=== PATIENT | male | born 1995 | race Caucasian/White ===

== ENCOUNTER 2024-04-23 05:43 | Emergency (ER) | payer BC, SELFPAY ==
--- NOTE | ~2024-04-23 | CT_ITS ---
CT FACIAL BONES WITH CONTRAST CLINICAL INFORMATION: Swelling and pain. COMPARISON: None available. TECHNIQUE: Multidetector CT acquisition of the maxillofacial region was obtained following the administration of 85 mL of Omnipaque 350 intravenous contrast without complication. This CT examination was performed using dose optimization techniques as appropriate, variously including the following: *Automated exposure control *Adjustment of mA and/or kV according to patient size (this includes techniques or standardized protocols for targeted exams where dose is matched to indication/reason for exam; i.e. extremities or head) *Use of iterative reconstruction technique FINDINGS: There is an odontogenic periapical abscess associated with the roots of the right second maxillary molar with adjacent maxillary alveolar process buccal cortical erosion and an overlying 1 cm x 0.5 cm right devyn-maxillary abscess surrounded by phlegmon and cellulitis extending into the right buccal and devyn-maxillary soft tissues. No additional significant soft tissue findings. There is moderate mucosal thickening within the right maxillary sinus and there is mild mucosal thickening within the left maxillary sinus. Mild mucosal thickening within the ethmoid air cells bilaterally. The remaining paranasal sinuses and the mastoid air cells are clear. The TMJs are unremarkable. There is leftward deviation of the nasal septum with a leftward directed septal spur and there are kasey bullosa within the right greater than left middle turbinates. CT/CT facial bones w IV con IMPRESSION: There is an odontogenic periapical abscess associated with the roots of the right second maxillary molar with adjacent maxillary alveolar process buccal cortical erosion, an overlying 1 cm right devyn-maxillary abscess, as well as phlegmon and cellulitis extending into the right buccal and right devyn-maxillary soft tissues. Electronically signed by: Roc Roberts MD 04/23/2024 01:37 PM EDT
[2024-04-23 05:48] VITALS: BP 170/109; PULSE 128; RESP 17; TEMP 36.8; O2SAT 98; BMI 35.4
[2024-04-23 07:36] VITALS: BP 171/103; PULSE 102; RESP 20; TEMP 36.8; O2SAT 98
--- NOTE | 2024-04-23 09:05 | ED_ITS ---
HPI - General Adult General Chief complaint: Dental/Oral Stated complaint: mouth infection Time Seen by Provider: 04/23/24 09:04 Source: patient and other (patient's partner) Mode of arrival: ambulatory Limitations: no limitations History of Present Illness ED Provider: Sue Boo PA-C HPI narrative: Patient is a 28 year old assigned male at with no reported medical history presenting to the emergency department today with right sided dental pain and facial swelling. Patient states that 3 days ago he was seen at his dentist and told his right upper tooth has an infection in it. Patient states that he was prescribed Amoxcillin, has been taking it as prescribed, however it continues to swell and now he has right sided facial swelling. Patient denies any dizziness, lightheadedness, abdominal pain, nausea, vomiting, fever, chills, blurry vision, double vision, loss of vision, chest pain, difficulty breathing, shortness of breath, back pain, night sweats, pain with urination, increased urinary frequency, increased urinary urgency, blood in his urine or stool, syncope or a near syncopal episode, recent trauma or falls, bowel incontinence, bladder incontinence, or any other complaints at this time. Onset (ago): day(s) (3) Location: mouth and right Relieving factors: none Exacerbating factors: none Associated symptoms: denies other symptoms Treatments prior to arrival: other (Amoxicillin) Related Data Previous Rx's ?Medication ?Instructions ?Recorded amoxicillin 875 mg-potassium 1 tab PO BID 10 days #20 tabs 04/23/24 clavulanate 125 mg tablet Allergies Allergy/AdvReac Type Severity Reaction Status Date / Time No Known Allergies Allergy Verified 04/23/24 05:52 Review of Systems 2 Constitutional: Constitutional: Reports no additional constitutional complaints, Denies chills, Denies fever(s) and Denies night sweats Eyes: Eyes: Reports no additional eye complaints, Denies blurry vision, Denies change in vision, Denies diplopia, Denies eye discharge, Denies loss of vision and Denies eye pain ENT: Denies dizziness Comments: right sided facial swelling and right sided mouth pain Cardiovascular: Cardiovascular: Reports no additional cardiovascular complaints, Denies chest pain, Denies lightheadedness, Denies Loss of Consciousness and Denies dyspnea Respiratory: Respiratory: Reports no additional respiratory complaints and Denies dyspnea Gastrointestinal: Gastrointestinal: Reports no additional gastrointestinal complaints, Denies abdominal pain, Denies melena, Denies hematochezia, Denies change in bowel habits and Denies change in stool character Genitourinary: Genitourinary: Reports no additional male genitourinary complaints, Denies hematuria, Denies oliguria, Denies difficulty urinating, Denies dysuria, Denies urinary frequency, Denies urinary hesitancy, Denies urinary incontinence and Denies urinary urgency Musculoskeletal: Musculoskeletal: Reports no additional musculoskeletal complaints, Denies numbness and Denies tingling Neurologic: Denies dizziness, Denies loss of vision, Denies numbness and Denies tingling Psychiatric: Psychiatric: Reports no additional psychiatric complaints Endocrine: Endocrine: Reports no additional endocrine complaints Hematologic/Lymphatic: Hematologic/Lymphatic: Reports no additional hematologic/lymphatic complaints Allergic/Immunologic: Allergic/Immunologic: Reports no additional allergic/immunologic complaints PMFSH Past Medical History Attestation statement: The following information was validated with the patient. (all information validated with the patient's partner) Source: old records reviewed, nursing notes reviewed and other (patient's partner provided additional history and confirmed the history provided by the patient) Social History Social History Alcohol intake: current Alcohol intake frequency: a few times a week Smoked in Last 30 Days: Yes Use of substances other than those prescribed or required for medical reasons: No Advance Directives: No Advance Directives Information Provided: No Do you have a plan to hurt others: No Plan Physical Exam ED Vital Signs: Vital Signs - 24 hr 04/23/24 05:48 04/23/24 07:36 04/23/24 11:58 Temperature 98.2 F 98.3 F 98.7 F Pulse Rate 128 H 102 H 112 H Respiratory Rate 17 20 16 Blood Pressure 170/109 H 171/103 H 157/94 H Pulse Oximetry 98 98 Oxygen Delivery Method Room Air Room Air Room Air 04/23/24 14:06 Temperature 98.7 F Pulse Rate 99 Respiratory Rate 16 Blood Pressure 164/97 H Pulse Oximetry 96 Oxygen Delivery Method Room Air BMI result Body Mass Index 35.4 Const General: cooperative, no acute distress, alert and awake Nutritional Appearance: well nourished Orientation/consciousness: patient oriented x3 Limitations: no limitations HENMT Head: Yes normal to inspection and Yes atraumatic Ears: hearing grossly normal bilaterally and external ears normal General nose exam: Normal external nose present, no nasal discharge noted and no epistaxis Face and sinus: No abrasion and No laceration Mouth: Normal oral and palatal mucosa present, no drooling and no muffled voice Teeth image: 2 1. swelling and erythema present - no fluctuance or active draining Eyes Other: minimal swelling just inferior of the right lower eye lid Eyelids: Yes eyelids normal Conjunctivae: conjunctivae normal Pupils: Equal, round and reactive pupils present EOM: EOMs intact bilaterally Neck Neck: Yes normal visual inspection, Yes full ROM and Yes no lymphadenopathy Chest Chest palpation & inspection: normal inspection of the chest Resp Effort & Inspection: normal respiratory effort and able to speak in complete sentences GI Inspection: Yes normal to inspection Neuro General: patient oriented x3 and moves all extremities Cranial nerves: Yes Equal, round and reactive pupils present Cognition (Neuro): normal cognition Extrem General: Yes normal to inspection, Yes full ROM and Yes capillary refill normal Psych Appearance: grossly normal Mental Status: mental status grossly normal Affect: normal affect Attitude: cooperative Thought process: Normal thought process present Thought content: Normal thought content present Insight: Good insight present (Psych) Medications Administered Discontinued Medications Generic Name Dose Route Start Last Admin Trade Name Mananq PRN Reason Stop Dose Admin Iohexol 85 ml 04/23/24 11:26 04/23/24 11:28 Iohexol 350 Mg/Ml 100 Ml Infus..Btl IV 04/23/24 11:27 85 ml ONCE ONE Administration Lorazepam 0.5 mg 04/23/24 09:30 04/23/24 09:35 Lorazepam 0.5 Mg Tablet PO 04/23/24 09:31 0.5 mg ONCE ONE Administration Ondansetron HCl 4 mg 04/23/24 09:30 04/23/24 09:35 Ondansetron Odt 4 Mg Tab.Rapdis TRANSLINGU 04/23/24 09:31 4 mg ONCE ONE Administration Procedures Abscess I/D Site: oral Side (if applicable): right Local Anesthetic: other anesthetic (2% Benzocaine (LolliCaine)) Technique: needle aspiration Amount of fluid expressed (mL): 1 Sent for culture/gram staining?: No Irrigation: No Packing used?: none Medical Decision Making Medical Decision Making MDM Narrative: Patient is a 28 year old assigned male at with no reported medical history presenting to the emergency department today with right sided facial swelling and pain. Patient's physical exam was as noted in the physical exam portion of this note. Patient's blood work showed an elevated ESR of 18 and CRP of 8.68 but were otherwise unremarkable. Patient's facial CT showed a periapical abscess associated with the roots of the right second maxillary molar with adjacent maxillary alveolar process buccal cortical erosion and an overlying 1cm right devyn-maxillary abscess with phlegmon and cellulitis extending into the right buccal and right maxillary soft tissues. I staffed this case with my attending physician, Dr. Gomez. He incised and drained part of the periapical abscess as noted in the procedure note, without incident. He recommended giving 3 grams of Unasyn, switching the patient from Amoxicillin to PO Augmentin, and discharging with strict return precautions and recommendation to follow up with his dentist. I explained my physical exam findings as well as all test results to the patient. I answered all questions asked by the patient. I stressed the importance of the patient taking his medication as directed (either prescribed or as the over the counter packaging recommends). I stressed the importance of the patient following up with his primary care provider and his dentist. I stressed the importance of the patient returning to the emergency department immediately if his symptoms were to worsen or if he were to develop any dizziness, shortness of breath, difficulty breathing, chest pain, blurry vision, loss of vision, nausea, vomiting, abdominal pain, fever, chills, back pain, or any other complaints. Patient verbalized agreement and understanding with this treatment plan and discharge. Differential Diagnosis Differential Diagnoses: The differential diagnosis associated with the presentation includes Dental abscess Facial cellulitis Admission/Observation Consideration of admission/observation: Escalation of care including admission/observation considered Patient would have been admitted to the hospital had his work up had any findings where hospital admission was appropriate and his clinical presentation warranted hospital admission. Lab Data [facility] Lab Attestation statement: I reviewed the patient's lab results. My interpretation of these results are in the [facility] Rationale portion of this note. 04/23/24 10:37 04/23/24 10:37 Labs: Lab Results 04/23/24 Range/Units 10:37 WBC 8.3 (4.8-10.8) X10*3/uL RBC 5.63 (4.60-5.80) X10*6/uL Hgb 16.8 (14.0-18.0) g/dl Hct 46.5 (42.0-52.0) % MCV 82.6 (80.0-98.0) fL MCH 29.8 (27.0-33.0) pg MCHC 36.1 H (31.0-36.0) g/dl RDW 12.4 (11.0-16.0) % Plt Count 167 (160-400) X10*3/uL MPV 9.2 L (9.4-12.4) fL Immature Gran % (Auto) 0.4 (0.0-0.4) % Neut % (Auto) 75.3 H (45-73) % Lymph % (Auto) 11.2 L (20-40) % [place] % (Auto) 11.8 H (2-11) % Eos % (Auto) 0.8 (0-4) % Baso % (Auto) 0.5 (0-2) % Lymph # (Auto) 0.9 L (1.2-4.9) X10*3/uL [place] # (Auto) 1.0 (0.1-1.2) X10*3/uL Eos # (Auto) 0.1 (0.0-0.4) X10*3/uL Baso # (Auto) 0.0 (0.0-0.2) X10*3/uL Abs Immat Gran (auto) 0.03 (0.00-0.03) X10*3/uL Absolute Neuts (auto) 6.3 (2.0-8.3) x10*3/uL Absolute Nucleated RBC 0.000 (0.0-0.012) X10*3/uL Nucleated RBC % (auto) 0.0 (0.0-0.2) /100WBC ESR 18 H (0-15) MM/HR Sodium 139 (135-145) mmol/L Potassium 4.1 (3.3-5.1) mmol/L Chloride 103 (96-108) mmol/L Carbon Dioxide 26 (22-29) mmol/L Anion Gap 14 (12-20) BUN 13 (9-16) mg/dL Creatinine 0.92 (0.5-1.4) mg/dL Estim Creat Clear Calc 154.1 Estimated GFR > 60 Random Glucose 109 (60-115) mg/dL Calcium 9.9 (8.4-10.2) mg/dL Total Bilirubin 0.7 (0.0-1.0) mg/dL AST 38 H (5-37) U/L ALT 56 H (0-40) U/L Alkaline Phosphatase 53 (39-117) U/L C-Reactive Protein 8.68 H (< or = 0.50) mg/dL Total Protein 8.3 H (6.5-8.0) g/dL Albumin 4.7 (3.5-5.0) g/dL Independent Interpretation I performed an independent interpretation of an: CT Scan Interpretation: My interpretation is in agreement with the radiologist's impression of this imaging study. - CT FACIAL BONES WITH CONTRAST CLINICAL INFORMATION: Swelling and pain. COMPARISON: None available. TECHNIQUE: Multidetector CT acquisition of the maxillofacial region was obtained following the administration of 85 mL of Omnipaque 350 intravenous contrast without complication. This CT examination was performed using dose optimization techniques as appropriate, variously including the following: *Automated exposure control *Adjustment of mA and/or kV according to patient size (this includes techniques or standardized protocols for targeted exams where dose is matched to indication/reason for exam; i.e. extremities or head) *Use of iterative reconstruction technique FINDINGS: There is an odontogenic periapical abscess associated with the roots of the right second maxillary molar with adjacent maxillary alveolar process buccal cortical erosion and an overlying 1 cm x 0.5 cm right devyn-maxillary abscess surrounded by phlegmon and cellulitis extending into the right buccal and devyn-maxillary soft tissues. No additional significant soft tissue findings. There is moderate mucosal thickening within the right maxillary sinus and there is mild mucosal thickening within the left maxillary sinus. Mild mucosal thickening within the ethmoid air cells bilaterally. The remaining paranasal sinuses and the mastoid air cells are clear. The TMJs are unremarkable. There is leftward deviation of the nasal septum with a leftward directed septal spur and there are kasey bullosa within the right greater than left middle turbinates. CT/CT facial bones w IV con IMPRESSION: There is an odontogenic periapical abscess associated with the roots of the right second maxillary molar with adjacent maxillary alveolar process buccal cortical erosion, an overlying 1 cm right devyn-maxillary abscess, as well as phlegmon and cellulitis extending into the right buccal and right devyn-maxillary soft tissues. Electronically signed by: Roc Roberts MD 04/23/2024 01:37 PM EDT RP Dictated By: Roc Roberts MD Signed By: Electronically signed by Roc Roberts MD 04/23/24 1337 Radiology Impression Discussion of test interpretation with radiology: I have reviewed the radiologist's reading. Independent Historian Clinical information obtained from an independent historian. History obtained from or confirmed by: Other (patient's partner provided additional history and confirmed the history provided by the patient.) Prescription Management I considered prescription management with: Antibiotic (patient switched to Augmentin) Critical Care Time Critical Care Time Critical Care Time: Yes Total Critical Care Time: 38 Attestation: I spent 38 minutes of Critical Care Time with this patient. This does not include time spent on separately reported billable procedures. Discharge Plan Discharge Clinical Impression: Dental abscess Patient Disposition: Home, Self-Care Instructions: Dental Abscess (ED) Additional Instructions: Follow up with your primary care provider and your dentist. Please STOP your amoxicillin and BEGIN the augmentin (amox-clav) as prescribed. Return to the emergency department immediately if your symptoms worsen or if you develop any dizziness, shortness of breath, difficulty breathing, chest pain, blurry vision, loss of vision, nausea, vomiting, abdominal pain, fever, chills, back pain, or any other complaints. Prescriptions: New amoxicillin-pot clavulanate 875-125 mg tablet 1 tab PO BID 10 Days Qty: 20 0RF Referrals: [facility] [Provider Group] (Call to establish and follow up with a primary care provider. If you already have a primary care provider, please follow up with them.) [facility], [place] [Provider Group] (Call to establish and follow up with a primary care provider. If you already have a primary care provider, please follow up with them.) [facility] [Provider Group] (Call to establish and follow up with a primary care provider. If you already have a primary care provider, please follow up with them.) Stand Alone Forms: Work/School Release Print Language: Georgian
[2024-04-23] MEDS: Ondansetron ODT 4 MG TAB.RAPDIS TRANSLINGU (09:35)
[2024-04-23] MEDS: LORazepam 0.5 MG TABLET PO (09:35)
[2024-04-23 10:41] LABS: MANUAL DIFF FLAG NO
[2024-04-23 10:46] LABS: Basophils Percent Auto 0.5 % (0-2); Eosinophils Absolute Auto 0.1 X10*3/uL (0.0-0.4); Eosinophils Percent Auto 0.8 % (0-4); Hematocrit 46.5 % (42.0-52.0); Hemoglobin 16.8 g/dl (14.0-18.0); Imm Gran Abs Auto 0.03 X10*3/uL (0.00-0.03); Imm Gran Pct Auto 0.4 % (0.0-0.4); Lymphocytes Absolute Auto 0.9 X10*3/uL (1.2-4.9); Lymphocytes Percent Auto 11.2 % (20-40); Mean Corpuscular HGB Conc 36.1 g/dl (31.0-36.0); Mean Corpuscular Hemoglobin 29.8 pg (27.0-33.0); Mean Corpuscular Volume 82.6 fL (80.0-98.0); Mean Platelet Volume 9.2 fL (9.4-12.4); Monocytes Percent Auto 11.8 % (2-11); Neutrophils Absolute Auto 6.3 x10*3/uL (2.0-8.3); Neutrophils Percent Auto 75.3 % (45-73); Platelet Count 167 X10*3/uL (160-400); Red Blood Count 5.63 X10*6/uL (4.60-5.80); Red Cell Distribution Width 12.4 % (11.0-16.0); White Blood Count 8.3 X10*3/uL (4.8-10.8)
[2024-04-23 11:03] LABS: Alanine Aminotransferase 56 U/L (0-40); Albumin Level 4.7 g/dL (3.5-5.0); Alkaline Phosphatase 53 U/L (39-117); Anion Gap 14 (12-20); Aspartate Amino Transferase 38 U/L (5-37); Bilirubin Total 0.7 mg/dL (0.0-1.0); Blood Urea Nitrogen 13 mg/dL (9-16); C Reactive Protein 8.68 mg/dL (< or = 0.50); Calcium 9.9 mg/dL (8.4-10.2); Carbon Dioxide 26 mmol/L (22-29); Chloride 103 mmol/L (96-108); Creatinine Clr Calc Pharmacy 154.1; Estimated Glomerular Filt Rate > 60; Glucose Random 109 mg/dL (60-115); Potassium 4.1 mmol/L (3.3-5.1); Sodium 139 mmol/L (135-145); Total Protein 8.3 g/dL (6.5-8.0)
[2024-04-23 11:24] LABS: Erythrocyte Sedimentation Rate 18 MM/HR (0-15)
[2024-04-23] MEDS: iohexoL 350 MG/ML 100 ML INFUS..BTL 85 ML IV (11:28)
[2024-04-23 11:58] VITALS: BP 157/94; PULSE 112; RESP 16; TEMP 37.1
[2024-04-23 14:06] VITALS: BP 164/97; PULSE 99; RESP 16; TEMP 37.1; O2SAT 96
[2024-04-23] MEDS: Ampicillin Sodium/Sulbactam Na 3 GM in 0.9 % Sodium Chloride 100 ML IV (14:13)
[2024-04-23 14:15] VITALS: BP 164/97; PULSE 99; RESP 16; TEMP 37.1; O2SAT 96
== END 2024-04-23 14:50 | disposition home or self-care (01) ==
PROVIDERS: Physician Assistant Medical; Emergency Provider Emergency Medicine
DX: K04.7 Periapical abscess without sinus (principal); K08.89 Other specified disorders of teeth and supporting structures
CPT/HCPCS: 36415; 70487; 80053; 85025; 85652; 86140; 96365; 99284; J0295; Q9967